=== PATIENT | male | born 1955 | race Caucasian/White ===

== ENCOUNTER 2020-05-18 13:51 | Emergency (ER) | payer BC, OTHER ==
[~2020-05-18] VITALS: Ht 182.9 cm; Wt 92.2 kg
[2020-05-18 14:00] VITALS: BP 164/81
[2020-05-18] MEDS ORDERED: ONDANSETRON ODT 4 MG TAB.RAPDIS ONE (14:15)
--- NOTE | 2020-05-18 14:33 | PHYS DOC ---
Past History Past Medical History: Arthritis Alcohol Use: Occasionally General Adult EDM: Chief Complaint: LACERATION/AVULSION HPI: HPI: 65-year-old male presents with laceration of the right thumb. He was cutting open a box with a box turner and it slipped and cut the dorsal side of his thumb. Patient has full range of motion and no loss of feeling. He does assume a need stitches. He has an up-to-date tetanus that was 2 years ago. He denies any other complaints. Review of Systems: Review of Systems: Constitutional: Denies fever or chills Eyes: Denies change in visual acuity HENT: Denies nasal congestion or sore throat Respiratory: Denies cough or shortness of breath Cardiovascular: Denies chest pain or edema GI: Denies abdominal pain, nausea, vomiting, bloody stools or diarrhea : Denies dysuria Musculoskeletal: Denies back pain or joint pain Integument: Laceration right thumb Neurologic: Denies headache, focal weakness or sensory changes Endocrine: Denies polyuria or polydipsia Lymphatic: Denies swollen glands Psychiatric: Denies depression or anxiety Heart Score: Risk Factors: Risk Factors: DM, Current or recent (<one month) smoker, HTN, HLP, family history of CAD, obesity. Risk Scores: Score 0 - 3: 2.5% MACE over next 6 weeks - Discharge Home Score 4 - 6: 20.3% MACE over next 6 weeks - Admit for Clinical Observation Score 7 - 10: 72.7% MACE over next 6 weeks - Early Invasive Strategies Current Medications: Current Meds: Current Medications Medications (Trade) Dose Ordered Sig/[facility] Start Time Stop Time Status Last Admin Dose Admin Ondansetron HCl (Zofran Odt) 4 mg STK-MED ONCE 05/18/20 14:15 05/18/20 14:15 DC Physical Exam: PE: Constitutional: Well developed, well nourished, no acute distress, non-toxic appearance. [] HENT: Normocephalic, atraumatic, bilateral external ears normal, oropharynx moist, no oral exudates, nose normal. [] Eyes: PERRLA, EOMI, conjunctiva normal, no discharge. [] Neck: Normal range of motion, no tenderness, supple, no stridor. [] Cardiovascular:Heart rate regular rhythm, no murmur [] Lungs & Thorax: Bilateral breath sounds clear to auscultation [] Abdomen: Bowel sounds normal, soft, no tenderness, no masses, no pulsatile masses. [] Skin: 2.5 cm laceration right thumb [] Back: No tenderness, no CVA tenderness. [] Extremities: No tenderness, no cyanosis, no clubbing, ROM intact, no edema. [] Neurologic: Alert and oriented X 3, normal motor function, normal sensory function, no focal deficits noted. [] Psychologic: Affect normal, judgement normal, mood normal. [] Current Patient Data: Vital Signs: Vital Signs Date Time Temp Pulse Resp B/P (MAP) Pulse Ox O2 Delivery O2 Flow Rate FiO2 05/18/20 14:00 62 19 164/81 (108) 93 Room Air EKG: EKG: [] Radiology/Procedures: Radiology/Procedures: [] Course & Med Decision Making: Course & Med Decision Making Pertinent Labs and Imaging studies reviewed. (See chart for details) I repaired the patient's wound with sutures. See note below for more details. His tetanus is up-to-date. He is stable for discharge at this time. [] Dragon Disclaimer: [employer] Disclaimer: This electronic medical record was generated, in whole or in part, using a voice recognition dictation system. Laceration Repair Lac Repair Indication: [] 2.5 cm linear laceration of the right thumb Procedure: I obtained verbal consent from the patient for suture repair of his right thumb laceration. Wound was thoroughly irrigated with saline. No foreign bodies were found. The wound was anesthetized with 2% lidocaine without epinephrine. 1.5 cc was used. After good anesthesia was achieved, I repaired the wound with 4-0 Ethilon sutures. 4 sutures in interrupted fashion were placed. There was good skin approximation. Bleeding was controlled. The wound was covered with a clean dressing. Total repaired wound length: 2.5 cm Other Items: None The patient tolerated the procedure well. Complications: None Departure Departure: Impression: Primary Impression: Laceration of right thumb Qualified Codes: S61.011A - Laceration without foreign body of right thumb without damage to nail, initial encounter Disposition: HOME/RESIDENCE PRIOR TO ADM Condition: STABLE Referrals: SUSAN PARR MD (PCP) Patient Instructions: Laceration Care, Adult, [id number] Justification of Admission: Justification of Admission: Justification of Admission Dx: N/A CHANTEL GU DO May 18, 2020 14:33
== END 2020-05-18 14:37 | disposition home or self-care (01) ==
LOC: ER 13:51
DX: S61.011A Laceration without foreign body of right thumb without damage to nail, initial encounter (principal); M19.90 Unspecified osteoarthritis, unspecified site; W26.8XXA Contact with other sharp object(s), not elsewhere classified, initial encounter; Y93.89 Activity, other specified; Y92.89 Other specified places as the place of occurrence of the external cause; Y99.8 Other external cause status
CPT/HCPCS: 12001; 99282

== ENCOUNTER 2020-06-30 09:59 | Emergency (ER) | payer OTHER, MEDICARE ==
[~2020-06-30] VITALS: Ht 182.9 cm; Wt 109.5 kg
--- NOTE | 2020-06-30 10:53 | PHYS DOC ---
Past History Past Medical History: Arthritis Alcohol Use: Occasionally General Adult EDM: Chief Complaint: BLOOD IN URINE HPI: HPI: History obtained for the patient. Patient is a [age]-year-old male with a history of arthritis who presents with chief complaint of right flank pain. Patient states he has noted dark-colored bloody urine for the past 2 days. He does note some right flank pain that began earlier today. States it is somewhat difficult it comfortable. He did take some tramadol that he typically takes for arthritis and states this did help his pain some. Does note nausea without vomiting. States he been eating and drinking well without difficulty. Denies diarrhea. Denies burning with urination. Denies chest pain or shortness breath. Denies cough. Denies fevers. Denies any known history of kidney stone he states. Denies syncope. Denies testicular pain. No other complaints. Review of Systems: Review of Systems: Constitutional: Denies fever or chills Eyes: Denies change in visual acuity HENT: Denies nasal congestion or sore throat Respiratory: Denies cough or shortness of breath Cardiovascular: Denies chest pain or edema GI: Positive for hematuria and right flank pain : Denies dysuria Musculoskeletal: Denies back pain or joint pain Integument: Denies rash Neurologic: Denies headache, focal weakness or sensory changes Endocrine: Denies polyuria or polydipsia Lymphatic: Denies swollen glands Psychiatric: Denies depression or anxiety Heart Score: Risk Factors: Risk Factors: DM, Current or recent (<one month) smoker, HTN, HLP, family history of CAD, obesity. Risk Scores: Score 0 - 3: 2.5% MACE over next 6 weeks - Discharge Home Score 4 - 6: 20.3% MACE over next 6 weeks - Admit for Clinical Observation Score 7 - 10: 72.7% MACE over next 6 weeks - Early Invasive Strategies Allergies: Allergies: Allergies Coded Allergies Type Severity Reaction Last Updated Verified No Known Drug Allergies 06/30/20 No Physical Exam: PE: Constitutional: Well developed, well nourished, no acute distress, non-toxic appearance. [] HENT: Normocephalic, atraumatic, bilateral external ears normal, oropharynx moist, no oral exudates, nose normal. [] Eyes: PERRLA, EOMI, conjunctiva normal, no discharge. [] Neck: Normal range of motion, no tenderness, supple, no stridor. [] Cardiovascular:Heart rate regular rhythm, no murmur [] Lungs & Thorax: Bilateral breath sounds clear to auscultation [] Abdomen: soft, no tenderness, no masses, no pulsatile masses. [] Skin: Warm, dry, no erythema, no rash. [] Back: Mild right-sided CVA tenderness. No midline step-offs or deformities palpated of the thoracic or lumbar spine reproducible midline tenderness. + 5/5 motor strength in dorsiflexion and plantarflexion of the great toes bilaterally. Sensation intact between the webbing of the first and second toes bilaterally. Extremities: No tenderness, no cyanosis, no clubbing, ROM intact, no edema. [] Neurologic: Alert and oriented X 3, normal motor function, normal sensory function, no focal deficits noted. [] Psychologic: Affect normal, judgement normal, mood normal. [] Current Patient Data: Labs: Laboratory Tests Test 06/30/20 10:45 06/30/20 11:25 Urine Collection Type Unknown Urine Color Yellow Urine Clarity Clear Urine pH 7.5 Urine Specific [place] 1.020 Urine Protein Neg Urine Glucose (UA) Neg mg/dL Urine Ketones (Stick) Neg mg/dL Urine Blood Trace Urine Nitrite Neg Urine Bilirubin Neg Urine Urobilinogen Dipstick 1.0 mg/dL Urine Leukocyte Esterase Neg Urine RBC 1-2 /HPF Urine WBC Occ /HPF Urine Squamous Epithelial Cells Few /LPF Urine Bacteria Few /HPF Urine Mucus Mod /LPF White Blood Count 6.9 x10^3/uL Red Blood Count 4.77 x10^6/uL Hemoglobin 17.2 g/dL Hematocrit 51.8 % Mean Corpuscular Volume 109 fL Mean Corpuscular Hemoglobin 36 pg Mean Corpuscular Hemoglobin Concent 33 g/dL Red Cell Distribution Width 13.2 % Platelet Count 184 x10^3/uL Neutrophils (%) (Auto) 80 % Lymphocytes (%) (Auto) 12 % Monocytes (%) (Auto) 6 % Eosinophils (%) (Auto) 1 % Basophils (%) (Auto) 0 % Neutrophils # (Auto) 5.6 x10^3uL Lymphocytes # (Auto) 0.9 x10^3/uL Monocytes # (Auto) 0.4 x10^3/uL Eosinophils # (Auto) 0.1 x10^3/uL Basophils # (Auto) 0.0 x10^3/uL Sodium Level 139 mmol/L Potassium Level 4.1 mmol/L Chloride Level 104 mmol/L Carbon Dioxide Level 30 mmol/L Anion Gap 5 Blood Urea Nitrogen 20 mg/dL Creatinine 1.0 mg/dL Estimated GFR (Cockcroft-Gault) 74.8 Glucose Level 120 mg/dL Calcium Level 9.5 mg/dL Current Medications Medications (Trade) Dose Ordered Sig/Sapna Route PRN Reason Start Time Stop Time Status Last Admin Dose Admin Acetaminophen/ Hydrocodone Bitart (Lortab 5/325) 2 tab 1X ONCE PO 06/30/20 11:00 06/30/20 11:01 DC 06/30/20 11:29 Ondansetron HCl (Zofran Odt) 4 mg 1X ONCE PO 06/30/20 11:00 06/30/20 11:01 DC 06/30/20 11:30 Vital Signs: Vital Signs Date Time Temp Pulse Resp B/P (MAP) Pulse Ox O2 Delivery O2 Flow Rate FiO2 06/30/20 11:29 20 EKG: EKG: [] Radiology/Procedures: Radiology/Procedures: [][place] [address] IMAGING REPORT Signed PATIENT: GERONIMO FOLEY ACCOUNT: [id number] : 1955 LOCATION: ER AGE: 65 SEX: M EXAM STATUS: REG ER ORD. PHYSICIAN: ASHLEY VINCENT DO REASON: R flank pain PROCEDURE: CT ABDOMEN PELVIS WO CONTRAST CT ABDOMEN PELVIS WO CONTRAST History: Reason: R flank pain / Spl. Instructions: / History: Technique: Noncontrast examination of the abdomen and pelvis. Coronal and sagittal reconstructions were performed. Exposure: One or more of the following individualized dose reduction techniques were utilized for this examination: 1. Automated exposure control 2. Adjustment of the mA and/or kV according to patient size 3. Use of iterative reconstruction technique. Comparison: None Findings: Lower chest: No consolidation or pleural effusion. Abdomen and pelvis: The liver, spleen, adrenal glands, pancreas and gallbladder are unremarkable. Unremarkable noncontrast appearance of the kidneys. No hydronephrosis. No renal calculi. Decompressed urinary bladder. Normal appendix. No evidence of bowel obstruction. No pathologic lymphadenopathy. No ascites. Small fat-containing umbilical hernia. Diffuse atheromatous plaque throughout the aorta and branch vessels. Focal left lateral aneurysmal dilatation of the infrarenal abdominal aorta measures 3.2 cm transverse by 2.6 cm anterior posterior. There is a chronic calcified dissection at the level of the aneurysm. Bones: Multilevel lumbar spondylosis most prominent L3-L4, L4-5 and L5-S1. Multilevel neuroforaminal narrowing most severe L5-S1. Impression: 1. No acute abdominal or pelvic pathology. 2. Small infrarenal abdominal aortic aneurysm with focal chronic calcified dissection. Electronically signed by: Edinson Flores DO (06/30/2020 11:47 AM) [id number] DICTATED AND SIGNED BY: EDINSON FLORES DO DATE: 06/30/20 1147 CC: ASHLEY VINCENT DO; SUSAN PARR MD ~ Course & Med Decision Making: Course & Med Decision Making Pertinent Labs and Imaging studies reviewed. (See chart for details) [] Patient is a well-appearing 65-year-old male who presents with chief complaint of right flank pain associated with some darker colored urine over the past 2 days. Urinalysis does show evidence of hematuria. No evidence of infection. CT imaging does not reveal any obvious kidney stone. Chemistry panel grossly unremarkable. CBC without leukocytosis or significant anemia. Patient continues to deny any chest pain or shortness of breath. CT imaging did note incidental finding of small aortic aneurysm. No signs of rupture. I do not feel this is likely the explanation for his symptoms. He may have recently passed a kidney stone and states that he thinks he may be saw a stone pass with urination yesterday. He states he did see his primary care doctor yesterday who also tested his urine. He does have close follow-up with his primary care physician. Overall very low suspicion for anginal equivalent. Given the pain is reported to be lower flank and he denies chest pain or shortness of breath EKG will be deferred. Denies any shortness of breath and has normal vital signs therefore very low suspicion for PE. I do feel the patient appropriate for discharge home with close PCP follow-up. Strict return precautions were discussed and understood. He is agreeable this plan. Encouraged him to continue takes tramadol at home for his chronic arthritis. Stable for discharge. Dragon Disclaimer: Dragon Disclaimer: This electronic medical record was generated, in whole or in part, using a voice recognition dictation system. Departure Departure: Impression: Primary Impression: Hematuria Qualified Codes: R31.9 - Hematuria, unspecified Additional Impressions: Flank pain Aortic aneurysm Qualified Codes: I71.4 - Abdominal aortic aneurysm, without rupture Disposition: 01 DC HOME SELF CARE/HOMELESS Condition: STABLE Referrals: SUSAN PARR MD (PCP) Patient Instructions: Hematuria, Adult Additional Instructions: Discharge Abdominal Pain Re-Check Precautions: I'm unsure of the specific cause of your abdominal pain. However, at this point I feel that you are low risk for a life threatening emergency and that discharge from the Emergency Department is safe. There is a very small possibility that you are just too early in your clinical course for our physical exam/labs/imaging to ascertain whether or not you have an emergent condition that could potentially cause permanent disability or be life threatening. As such, it is very important that you follow up with your primary doctor or return to the Emergency Department in 12-24 hours for re-assessment and further evaluation if clinically indicated. If you develop new or worsening symptoms then you should return to the Emergency Department immediately. Home Care Instructions: Abdominal Pain Many things may cause abdominal pain. Your ER visit might not show the exact reason you are having pain. In some cases, additional time is needed to det ermine if the cause is serious. Therefore you may be told to go home and watch for any changes or worsening in your condition. Before that, we may not know if you need more testing, or if hospitalization or surgery is necessary. If its not something serious, the pain may go away without treatment or get better with simple things like avoiding certain foods or medications. In the ER, your doctor asks you questions, examines you and in some cases, may order tests. These help doctors decide if the pain is from something serious. Tests are not always done and may not provide a definite answer. There can still be a problem, even with n ormal test results. Abdominal pain may be caused by something serious (like appendicitis), which is not obvious right away. Because of this, another checkup is needed to make sure you are OK. It is VERY IMPORTANT to follow up for a repeat exam, especially if you have any symptoms that are not going away or are getting worse. We recommend that you RETURN TO THE EMERGENCY ROOM IN 8-12 HOURS to be rechecked. If you cannot, you may follow up with your primary care doctor or clinic. It is important that you follow all of the instructions below. RETURN TO THE EMERGENCY ROOM IMMEDIATELY IF: The pain does not go away or gets worse. You have a fever. You keep throwing up and cannot keep anything down. You pass bloody or black stools. You develop new symptoms. HOME CARE INSTRUCTIONS Come back to the ER (or see your doctor) in 8-12 hours. DO NOT take laxatives unless directed by your doctor. Avoid the use of alcohol Take pain medicine only as directed by your doctor. Only take [id number] or prescription medicine as directed by your doctor. Try a clear liquid diet (broth, tea, jello, water) for the next 12-24 hours. Slowly move to a bland diet as tolerated. Do not eat greasy, fatty or spicy foods. Once you start getting better, go back to a normal, healthy diet, slowly over a few days. DISCHARGE PT INSTRUCTIONS: YOU HAVE BEEN EVALUATED FOR ABDOMINAL PAIN. HOWEVER, WE ARE UNABLE TO PROVIDE A DEFINITE CAUSE OF YOUR SYMPTOMS. EVEN THOUGH YOUR TESTS MAY HAVE BEEN NORMAL, YOU STILL COULD HAVE A SERIOUS CAUSE FOR YOUR ABDOMINAL PAIN, INCLUDING APPENDICITIS. THE BEST TEST TO DETERMINE IF YOU HAVE A SERIOUS CAUSE IS RE-EXAMINATION OVER TIME. WE USED TO ADMIT PATIENTS TO THE HOSPITAL FOR THIS, BUT CAN NOW ALLOW YOU TO GO HOME, & RETURN TO OUR ER THE NEXT DAY FOR RE- EXAMINATION. THUS, WE WOULD LIKE YOU TO RETURN TO OUR ER TOMORROW FOR YOUR RE- EVALUATION. (IF YOUR SYMPTOMS HAVE GONE AWAY, THEN YOU DO NOT NEED TO RETURN.) IF YOUR SYMPTOMS GET WORSE BETWEEN NOW & THEN, YOU SHOULD RETURN IMMEDIATELY & NOT WAIT UNTIL TOMORROW. SYMPTOMS TO LOOK FOR WORSENING PAIN, HIGH FEVER, PERSISTENT VOMITING [NOT CONTROLLED BY MEDICINE], AND/OR OVERALL WORSENING OF YOUR CONDITION. Scripts Ondansetron Hcl (ZOFRAN) 4 Mg Tablet 4 MG PO TID PRN PRN for NAUSEA, #9 TAB Prov: ASHLEY VINCENT DO 06/30/20 ASHLEY VINCENT DO Jun 30, 2020 10:53
[2020-06-30] MEDS ORDERED: ONDANSETRON ODT 4 MG TAB.RAPDIS PO ONE (11:00)
[2020-06-30] MEDS ORDERED: HYDROcodone/APAP 5/325MG 1 TAB TABLET PO ONE (11:00)
[2020-06-30 11:30] LABS: BILIRUBIN,URINE NEG (NEG); CLARITY,URINE CLEAR; COLOR,URINE YELLOW; GLUCOSE,URINE NEG (NEG); NITRITE,URINE NEG (NEG)
[2020-06-30 11:31] LABS: BACTERIA,URINE FEW /HPF (0-FEW); SQUAMOUS EPITHELIAL CELL,UR FEW /LPF; WBC,URINE OCC /HPF (0-4)
--- NOTE | 2020-06-30 11:50 | RAD ---
CT ABDOMEN PELVIS WO CONTRAST History: Reason: R flank pain / Spl. Instructions: / History: Technique: Noncontrast examination of the abdomen and pelvis. Coronal and sagittal reconstructions were performed. Exposure: One or more of the following individualized dose reduction techniques were utilized for this examination: 1. Automated exposure control 2. Adjustment of the mA and/or kV according to patient size 3. Use of iterative reconstruction technique. Comparison: None Findings: Lower chest: No consolidation or pleural effusion. Abdomen and pelvis: The liver, spleen, adrenal glands, pancreas and gallbladder are unremarkable. Unremarkable noncontrast appearance of the kidneys. No hydronephrosis. No renal calculi. Decompressed urinary bladder. Normal appendix. No evidence of bowel obstruction. No pathologic lymphadenopathy. No ascites. Small fat-containing umbilical hernia. Diffuse atheromatous plaque throughout the aorta and branch vessels. Focal left lateral aneurysmal dilatation of the infrarenal abdominal aorta measures 3.2 cm transverse by 2.6 cm anterior posterior. There is a chronic calcified dissection at the level of the aneurysm. Bones: Multilevel lumbar spondylosis most prominent L3-L4, L4-5 and L5-S1. Multilevel neuroforaminal narrowing most severe L5-S1. Impression: 1. No acute abdominal or pelvic pathology. 2. Small infrarenal abdominal aortic aneurysm with focal chronic calcified dissection. Electronically signed by: Edinson Flores DO (06/30/2020 11:47 AM) [id number]
[2020-06-30 11:54] LABS: BASO % 0 % (0-3); EOS # 0.1 x10^3/uL (0.0-0.7); EOS % 1 % (0-3); HEMATOCRIT 51.8 % (39.0-53.0); HEMOGLOBIN 17.2 g/dL (13.0-17.5); LYMPH # 0.9 x10^3/uL (1.0-4.8); LYMPH % 12 % (24-48); MEAN CORPUSCULAR HEMOGLOBIN 36 pg (25-35); MEAN CORPUSCULAR HGB CONC 33 g/dL (31-37); MEAN CORPUSCULAR VOLUME 109 fL (79-100); MONO # 0.4 x10^3/uL (0.0-1.1); MONO % 6 % (0-9); NEUT # 5.6 x10^3uL (1.8-7.7); NEUT % 80 % (31-73); PLATELET COUNT 184 x10^3/uL (140-400); RED BLOOD COUNT 4.77 x10^6/uL (4.30-5.70); RED CELL DISTRIBUTION WIDTH 13.2 % (11.5-14.5); WHITE BLOOD COUNT 6.9 x10^3/uL (4.0-11.0)
[2020-06-30 12:00] LABS: CALCIUM 9.5 mg/dL (8.5-10.1); GFR 74.8; POTASSIUM 4.1 mmol/L (3.5-5.1)
[2020-06-30] MEDS ORDERED: ONDA4TAB7 PO (12:10)
[2020-06-30 12:43] VITALS: BP 126/72
== END 2020-06-30 12:48 | disposition home or self-care (01) ==
LOC: ER 09:59
DX: R31.9 Hematuria, unspecified (principal); I71.4 Abdominal aortic aneurysm, without rupture; R10.9 Unspecified abdominal pain; M19.90 Unspecified osteoarthritis, unspecified site
CPT/HCPCS: 36415; 74176; 80048; 81001; 85025; 99285; Q0162

== ENCOUNTER → 2020-08-08 | Outpatient (CLI) | payer MEDICARE ==
[~2020-08-08] MED LIST: IOHEXOL 350 MG/ML 100 ML VIAL. IV ONE; ONDA4TAB7 PO
--- NOTE | 2020-08-08 14:53 | RAD ---
Examination: CT ABDOMEN PELVIS WO/W History: Reason: GROSS HEMATURIA / Spl. Instructions: / History: Comparison/Correlation: 06/30/2020 CT abdomen and pelvis without contrast Findings: Axial images of the abdomen and pelvis were obtained prior to and following IV contrast. Exam was performed according to CT urogram protocol. 3-D maximum intensity projection images of the collecting systems was provided. Visualized lung bases are clear. Liver, spleen, pancreas, and adrenal glands are unremarkable. Gallbladder fossa is unremarkable. No ascites or pelvic free fluid. No enlarged abdominal or pelvic lymph nodes. Punctate nonobstructive left renal upper pole calyceal calculus is present. No hydronephrosis. No hydroureter. No radiopaque urinary bladder calculus. Urinary bladder has circumferential wall thickening. No surrounding stranding. Prostatomegaly is present with diameter of 5.4 cm. No suspicious filling defects are identified involving the pyelocalyceal systems or ureters but the ureters do not fully opacify with contrast limiting assessment. Infrarenal abdominal aortic aneurysm measuring up to 3.3 cm transverse by 2.7 cm anteroposterior is present. Partial thrombosis of the aneurysm is noted. Significant disc space narrowing from L3 to S1 is present with vacuum phenomenon. Mild concentric disc bulge at L2-3 is present with effacement of the thecal sac and mild canal stenosis. Spurring along the posterior margin of femoral through L5 disc space levels also evident with effacement of the thecal sac. Right neural foraminal narrowing especially seen at L4-5 and L5-S1. Subtle levoconvex lumbar spine noted. Small umbilical hernia is present. Diverticulosis is present without findings of acute inflammation. No enlarged abdominal or pelvic lymph nodes. Impression: Nonobstructive left renal calculus. No mass lesions identified. No collecting system obstruction. Circumferential wall thickening of the urinary bladder presumably related to bladder outlet obstruction with prostatomegaly noted. Diverticulosis. Infrarenal abdominal aortic aneurysm. PQRS Compliance Statement: One or more of the following individualized dose reduction techniques were utilized for this examination: 1. Automated exposure control 2. Adjustment of the mA and/or kV according to patient size 3. Use of iterative reconstruction technique Electronically signed by: Gonzalez Reagan MD (08/08/2020 2:50 PM) [email or web address]
== END ==
LOC: CT 07:57
PROVIDERS: ATTEND Internal Medicine
DX: K42.9 Umbilical hernia without obstruction or gangrene (principal); K57.30 Diverticulosis of large intestine without perforation or abscess without bleeding; R31.0 Gross hematuria; N20.0 Calculus of kidney; M48.07 Spinal stenosis, lumbosacral region
CPT/HCPCS: 74178; Q9967